=== PATIENT | male | born 1980 | race Caucasian/White ===

== ENCOUNTER 2018-01-29 13:28 | Emergency (ER) | payer OTHER ==
[~2018-01-29] VITALS: Ht 175.3 cm; Wt 93.0 kg
[2018-01-29] MEDS ORDERED: VASOTEC2.5 MG (13:53)
== END 2018-01-29 15:27 | disposition home or self-care (01) ==
LOC: ER 13:28
DX: G43.909 Migraine, unspecified, not intractable, without status migrainosus (principal)

== ENCOUNTER 2019-04-16 12:39 | Emergency (ER) | payer OTHER ==
[~2019-04-16] VITALS: Ht 175.3 cm; Wt 99.8 kg
[~2019-04-16 12:39] MED LIST: VASOTEC2.5 MG
== END 2019-04-16 18:04 | disposition home or self-care (01) ==
LOC: ER 12:39
DX: B33.8 Other specified viral diseases (principal); B96.0 Mycoplasma pneumoniae [M. pneumoniae] as the cause of diseases classified elsewhere

== ENCOUNTER 2020-09-02 14:21 | Emergency (ER) | payer OTHER ==
[~2020-09-02] VITALS: Ht 175.3 cm; Wt 95.3 kg
== END 2020-09-02 18:06 | disposition home or self-care (01) ==
LOC: ER 14:21
DX: M79.631 Pain in right forearm (principal); I10 Essential (primary) hypertension

== ENCOUNTER 2021-08-08 22:36 | Emergency (ER) | payer OTHER ==
[~2021-08-08] VITALS: Ht 175.3 cm; Wt 93.9 kg
[2021-08-08] MEDS ORDERED: FENOFIBRIC ACID35 MG PO (22:42)
[2021-08-08] MEDS ORDERED: AVAPRO150 MG PO (22:43)
== END 2021-08-09 00:12 | disposition home or self-care (01) ==
LOC: ER 22:36
DX: M94.0 Chondrocostal junction syndrome [Tietze] (principal); I10 Essential (primary) hypertension

== ENCOUNTER → 2024-04-21 | Emergency (ER) | payer OTHER ==
[~2024-04-21] VITALS: Ht 175.3 cm; Wt 89.8 kg
[~2024-04-21] MED LIST changes: +AVAPRO150 MG PO; +FENOFIBRIC ACID35 MG PO; +KETOROLAC TROMETHAMINE 30 MG VIAL IM STA; +ORPHENADRINE CITRATE 30 MG/ML AMPUL IM STA
== END | disposition home or self-care (01) ==
LOC: ER 13:38
DX: M54.89 Other dorsalgia (principal)